=== PATIENT | male | born 1975 | race Two or more races ===

== ENCOUNTER 2021-02-11 21:19 | Emergency (ER) | payer SELFPAY ==
[~2021-02-11] VITALS: Ht 185.4 cm; Wt 115.0 kg
[2021-02-11] MEDS ORDERED: ONDANSETRON 4MG ODT PO ONE (23:00)
[2021-02-12] VITALS: BP 148/89
== END 2021-02-12 | disposition home or self-care (01) ==
LOC: ER 21:44
DX: T40.601A Poisoning by unspecified narcotics, accidental (unintentional), initial encounter (principal); R23.0 Cyanosis; R06.81 Apnea, not elsewhere classified; Y92.9 Unspecified place or not applicable; E11.9 Type 2 diabetes mellitus without complications; I10 Essential (primary) hypertension
CPT/HCPCS: 93005; 99283